=== PATIENT | male | born 1950 | race Caucasian/White ===

== ENCOUNTER 2018-08-04 11:20 | Emergency (ER) | payer MEDICARE ==
[2018-08-04] MEDS ORDERED: DECADRON IM ONE (14:40)
--- NOTE | 2018-08-04 14:47 | Emergency Department Report ---
ED Lower Extremity HPI - General Chief Complaint: Extremity Injury, Lower Stated Complaint: LEFT LEG PAIN Time Seen by Provider: 08/04/18 14:02 Source: patient Mode of arrival: Wheelchair Limitations: No Limitations - History of Present Illness Initial Comments: This is a 68-year-old male nontoxic, well nourished in appearance, no acute signs of distress presents to the ED with c/o of left ankle and foot pain 1 week. Patient stated that he has history of gout and this is a typically gout flareup. PAtient staed that his PCP Dr. Yin V sent patient for r/o DVT for a doppler study. Patient denies any other trauma. Patient denies any numbness, tingling, fever, chills, nausea, vomiting, chest pain, shortness of breath, headache, stiff neck. Patient denies any calf pain or tenderness. Patient denies decreased range of motion. Patient stated has decreased gait due to pain. Patient denies any allergies. PMH includes asthma, HTNm and gout. MD Complaint: ankle injury, foot injury -: week(s) (1) Injury: Ankle: Left, Foot: Left Severity: mild Severity scale (0 -10): 8 Improves With: immobilization Worsens With: weight bearing, palpation Associated Symptoms: swelling, able to partially bear weight. denies: snap/pop sensation, numbness, tingling, unable to bear weight, ambulatory - Related Data Previous Rx's Medication Instructions Recorded Last Taken Type Diclofenac Sodium [Voltaren-Xr] 100 mg PO DAILY PRN #15 tab.er.24h 08/04/18 Unknown Rx Prednisone [predniSONE 10 mg 10 mg PO .TAPER #1 tab.ds.pk 08/04/18 Unknown Rx (6-Day Pack, 21 Tabs)] Allergies Allergy/AdvReac Type Severity Reaction Status Date / Time No Known Allergies Allergy Unverified 08/04/18 12:28 ED Review of Systems ROS: Stated complaint: LEFT LEG PAIN Other details as noted in HPI Constitutional: denies: chills, fever Eyes: denies: eye pain, eye discharge, vision change ENT: denies: ear pain, throat pain Respiratory: denies: cough, shortness of breath, wheezing Cardiovascular: denies: chest pain, palpitations Endocrine: no symptoms reported Gastrointestinal: denies: abdominal pain, nausea, diarrhea Genitourinary: denies: urgency, dysuria Musculoskeletal: denies: back pain, joint swelling, arthralgia Skin: denies: rash, lesions Neurological: denies: headache, weakness, paresthesias Psychiatric: denies: anxiety, depression Hematological/Lymphatic: denies: easy bleeding, easy bruising ED Past Medical Hx - Past Medical History Previous Medical History?: Yes Hx Hypertension: Yes Hx Asthma: Yes Additional medical history: Gout, hyperlipidemia - Surgical History Past Surgical History?: Yes Additional Surgical History: hernia repair at 1 yrs old - Social History Smoking Status: Never Smoker Substance Use Type: Alcohol - Medications Home Medications: Home Medications Medication Instructions Recorded Confirmed Last Taken Type Diclofenac Sodium [Voltaren-Xr] 100 mg PO DAILY PRN #15 tab.er.24h 08/04/18 Unknown Rx Prednisone [predniSONE 10 mg 10 mg PO .TAPER #1 tab.ds.pk 08/04/18 Unknown Rx (6-Day Pack, 21 Tabs)] ED Physical Exam - General Limitations: No Limitations General appearance: alert, in no apparent distress - Head Head exam: Present: atraumatic, normocephalic - Eye Eye exam: Present: normal appearance - ENT ENT exam: Present: mucous membranes moist - Neck Neck exam: Present: normal inspection - Respiratory Respiratory exam: Present: normal lung sounds bilaterally. Absent: respiratory distress - Cardiovascular Cardiovascular Exam: Present: regular rate, normal rhythm. Absent: systolic murmur, diastolic murmur, rubs, gallop - GI/Abdominal GI/Abdominal exam: Present: soft, normal bowel sounds - Rectal Rectal exam: Present: deferred - Extremities Exam Extremities exam: Present: normal inspection, full ROM (with pain), tenderness, normal capillary refill. Absent: joint swelling, calf tenderness - Expanded Lower Extremity Exam Left Hip exam: Present: normal inspection, full ROM. Absent: tenderness, swelling Upper Leg exam: Present: normal inspection, full ROM. Absent: tenderness, swelling Knee exam: Present: normal inspection, full ROM. Absent: tenderness, swelling Lower Leg exam: Present: normal inspection, full ROM. Absent: tenderness, swelling Ankle exam: Present: normal inspection, full ROM, tenderness, swelling. Absent : abrasion, laceration, ecchymosis, deformity, crepidus, dislocation, erythema, anterior draw sign Foot/Toe exam: Present: normal inspection, full ROM, tenderness, swelling. Absent: abrasion, laceration, ecchymosis, deformity, crepidus, dislocation, erythema, amputation, puncture wound, foreign body, calcaneal tenderness, tenderness at base of 5th metatarsal, nail avulsion, subungual hematoma Neuro vascular tendon exam: Present: no vascular compromise. Absent: pulse deficit, abnormal cap refill, motor deficit, sensory deficit, tendon deficit, extremity cold to touch, pallor, abnormal 2-point discrimination, decreased fine /light touch, foot drop, peroneal nerve deficit, significant pain with passive ROM of distal joint Gait: Positive: observed and limited by pain - Back Exam Back exam: Present: normal inspection, full ROM - Neurological Exam Neurological exam: Present: alert, oriented X3, normal gait - Psychiatric Psychiatric exam: Present: normal affect, normal mood - Skin Skin exam: Present: warm, dry, intact, normal color. Absent: rash ED Course Vital Signs 08/04/18 08/04/18 12:11 15:22 Temperature 98.5 F Pulse Rate 77 Respiratory 18 20 Rate Blood Pressure 145/81 O2 Sat by Pulse 97 Oximetry - Reevaluation(s) Reevaluation #1: 08/04/18 14:46 Patient is speaking in full sentences with no signs of distress noted. ED Lower Extremity MDM - Medical Decision Making This is a 68-year-old male that presents with gout flareup. Patient is stable and was examined by me. As per Dr. Yin V (PCP) doppler US obtained with no evidence of DVT/SVT. Patient stated this is a typical gout flareup. Uric acid obtained with symptoms has been there for 2 weeks. Patient does have normal gait with no tenderness and no joint swelling. No ecchymosis. no joint redness or swelling. Not warm to touch. No signs of cellulites present. Patient was instructed to RICE therapy. Patient received Decadron and Voltran for pain. Patient is discharged with Voltran and prednisone. At time of discharge, the patient does not seem toxic or ill in appearance. No acute signs of distress noted. Patient agrees to discharge treatment plan of care. No further questions noted by the patient. Critical care attestation.: If time is entered above; I have spent that time in minutes in the direct care of this critically ill patient, excluding procedure time. ED Disposition Clinical Impression: Gout flare Qualifiers: Gout site: ankle Gout etiology: unspecified cause Laterality: left Qualified Code(s): M10.9 - Gout, unspecified Disposition: DC- TO HOME OR SELFCARE Is pt being admited?: No Does the pt Need Aspirin: No Condition: Stable Instructions: Acute Gouty Arthritis (ED) Additional Instructions: Follow-up with a primary care/orthopedic doctor in 3-5 days or if symptoms worsen and continue return to emergency room as soon as possible. Prescriptions: Diclofenac Sodium [Voltaren-Xr] 100 mg PO DAILY PRN #15 tab.er.24h PRN Reason: Pain , Severe (7-10) Prednisone [predniSONE 10 mg (6-Day Pack, 21 Tabs)] 10 mg PO .TAPER #1 tab.ds.pk Referrals: PRIMARY CARE, [Primary Care Provider] - 3-5 Days FRANCOIS OLIVAS MD [Staff Physician] - 3-5 Days JULIAN LIN MD [Staff Physician] - 3-5 Days [facility] [Outside] - 3-5 Days
[2018-08-04] MEDS ORDERED: VOLTAREN PO ONE (15:40)
[2018-08-04 17:06] VITALS: BP 138/72
--- NOTE | 2018-08-07 15:34 | Vascular Lab Report ---
Left Lower Extremity Venous Duplex Study: Reason for Exam: Pain and swelling of the left lower extremity. Comments on the Right: A limited duplex study was done of the proximal veins of the right lower extremity. All veins visualized are freely compressible without evidence of internal echogenicity. Flow is spontaneous and phasic throughout. No evidence of acute or chronic thrombus is seen in any of the vessels visualized. Comments on the Left: All veins visualized are freely compressible without evidence of internal echogenicity. Flow is spontaneous and phasic throughout. No evidence of acute or chronic thrombus is seen in any of the vessels visualized. A nonspecific soft tissue changes seen in the medial left ankle. This may be soft tissue injury or hematoma. Impression: No evidence of acute or chronic deep venous thrombosis in the left lower extremity. A nonspecific soft tissue changes seen around the left ankle. It appears relatively deeper on the level of the bone. This may be hematoma or soft tissue injury. Clinical correlation is recommended.
== END 2018-08-04 17:04 | disposition home or self-care (01) ==
LOC: ED 11:20
DX: M10.9 Gout, unspecified (principal); I10 Essential (primary) hypertension; J45.909 Unspecified asthma, uncomplicated; E78.5 Hyperlipidemia, unspecified
CPT/HCPCS: 36415; 84550; 93971; 96372; 99284; J1100